=== PATIENT | male | born 1980 | race Caucasian/White ===

== ENCOUNTER 2016-03-30 19:36 | Emergency (ER) | payer OTHER ==
[2016-03-30] MEDS ORDERED: ACETAMINOPHEN 325 MG TABLET ONE (20:27)
[2016-03-30] MEDS ORDERED: IBUPROFEN 600 MG TABLET ONE (20:27)
== END 2016-03-30 20:39 | disposition home or self-care (01) ==
LOC: ED 19:36
DX: G89.29 Other chronic pain (principal); M25.562 Pain in left knee